=== PATIENT | female | born 1955 | race Two or more races ===

== ENCOUNTER → 2021-10-16 | Emergency (ER) | payer SELFPAY ==
[~2021-10-16] VITALS: Ht 170.2 cm; Wt 160.0 kg
[2021-10-16 20:33] VITALS: BP 153/102
== END | disposition left against medical advice (07) ==
LOC: ER 19:25 → EDBD 19:25
DX: I10 Essential (primary) hypertension (principal); Z53.21 Procedure and treatment not carried out due to patient leaving prior to being seen by health care provider
CPT/HCPCS: 93005